=== PATIENT | male | born 1990 | race Two or more races ===

== ENCOUNTER 2017-11-21 05:11 | Emergency (ER) | payer MEDICAID ==
[~2017-11-21] VITALS: Ht 180.3 cm; Wt 99.8 kg
[2017-11-21 05:58] LABS: Urine Bacteria NONE SEEN /hpf (None Seen); Urine Blood Negative /uL (Negative); Urine Specific Gravity 1.006 (1.001-1.035); Urine WBC <1 /hpf (0 - 3)
[2017-11-21 06:03] LABS: Amphetamine Screen, Urine NEGATIVE (NEGATIVE); Barbiturate Scree,Urine NEGATIVE (NEGATIVE); Benzodiazephine Screen, Urine NEGATIVE (NEGATIVE); Cannabinoid Screen, Urine NEGATIVE (NEGATIVE); Cocaine Screen, Urine NEGATIVE (NEGATIVE); Opiate Scree,Urine NEGATIVE (NEGATIVE); Phencyclidine Screen, Urine NEGATIVE (NEGATIVE)
[2017-11-21 08:22] LABS: Basophils # (auto) 0.1 uL; Basophils % (auto) 0.8 % (0.0-2.0); Eosinophils # (auto) 0.1 uL; Eosinophils % (auto) 1.8 % (0.0-7.0); Hematocrit 45.7 % (41.0-53.0); Hemoglobin 15.2 g/dL (13.5-17.5); Lymphocytes % (auto) 29.7 % (10.0-50.0); Mean Corpuscular Hemoglobin 29.6 pg (28.0-32.0); Mean Corpuscular Hgb Conc. 33.2 g/dL (32.0-36.0); Mean Corpuscular Volume 89.3 fL (80.0-100.0); Monocytes # (auto) 0.5 uL; Monocytes % (auto) 7.6 % (0.0-12.0); Neutrophils # (auto) 4.1 uL; Neutrophils % (auto) 60.1 % (37.0-80.0); Nucleated Red Blood Cells % 0.1 %; Platelet Count (auto) 195 10^3/uL (140-450); Red Blood Cells 5.12 10^6/uL (4.5-5.90); Red Cell Distribution Width 13.1 % (11.8-14.3); White Blood Cell 6.8 10^3/uL (4.4-10.8)
[2017-11-21 08:42] LABS: Alanine Aminotransferase 47 U/L (16-61); Albumin 4.2 g/dL (3.4-5.0); Alkaline Phosphatase 81 U/L (45-117); Anion Gap 7 (5-15); Aspartate Aminotransferase 23 U/L (15-37); BUN/Creatinine Ratio 15.6; Bilirubin, Total 0.5 mg/dL (0.2-1.0); Blood Urea Nitrogen 14 mg/dL (7-18); Calcium 8.6 mg/dL (8.5-10.1); Carbon Dioxide 25 mmol/L (21-32); Chloride 109 mmol/L (98-107); GFR African American 131 mL/min; GFR Non-African American 108 mL/min; Glucose 83 mg/dL (74-106); Magnesium 2.6 mg/dL (1.6-2.6); Potassium 3.9 mmol/L (3.5-5.1); Sodium 141 mmol/L (136-145); Total Protein 8.4 g/dL (6.4-8.2)
[2017-11-21 09:34] VITALS: BP 131/70
== END 2017-11-21 09:40 | disposition home or self-care (01) ==
LOC: ER 05:17
DX: R07.89 Other chest pain (principal); F10.10 Alcohol abuse, uncomplicated; F17.210 Nicotine dependence, cigarettes, uncomplicated
CPT/HCPCS: 36415; 71045; 80053; 80307; 81001; 83735; 83880; 84484; 85025; 93005

== ENCOUNTER 2018-06-15 01:45 | Emergency (ER) | payer MEDICAID ==
[~2018-06-15] VITALS: Ht 180.3 cm; Wt 95.3 kg
[2018-06-15 02:30] LABS: Basophils # (auto) 0.1 uL; Eosinophils # (auto) 0.2 uL; Eosinophils % (auto) 2.3 % (0.0-7.0); Hematocrit 43.9 % (41.0-53.0); Hemoglobin 15.2 g/dL (13.5-17.5); Lymphocytes # (auto) 2.8 uL; Lymphocytes % (auto) 36.6 % (10.0-50.0); Mean Corpuscular Hemoglobin 30.8 pg (28.0-32.0); Mean Corpuscular Hgb Conc. 34.6 g/dL (32.0-36.0); Mean Corpuscular Volume 88.8 fL (80.0-100.0); Monocytes # (auto) 0.5 uL; Monocytes % (auto) 7.2 % (0.0-12.0); Neutrophils % (auto) 52.9 % (37.0-80.0); Platelet Count (auto) 190 10^3/uL (140-450); Red Blood Cells 4.95 10^6/uL (4.5-5.90); Red Cell Distribution Width 12.9 % (11.8-14.3); White Blood Cell 7.6 10^3/uL (4.4-10.8)
[2018-06-15 02:45] LABS: INR 0.95 (0.9-1.15); Partial Thromboplastin Time 30.2 sec (23.78-33.04); Prothrombin Time 10.2 sec (9.27-12.13)
[2018-06-15 02:48] LABS: Alanine Aminotransferase 45 U/L (16-61); Albumin 4.2 g/dL (3.4-5.0); Anion Gap 8 (5-15); Blood Urea Nitrogen 19 mg/dL (7-18); Calcium 8.9 mg/dL (8.5-10.1); Carbon Dioxide 27 mmol/L (21-32); Chloride 106 mmol/L (98-107); Glucose 131 mg/dL (74-106); Magnesium 2.5 mg/dL (1.6-2.6); Potassium 3.6 mmol/L (3.5-5.1); Sodium 141 mmol/L (136-145)
[2018-06-15 02:53] LABS: Alkaline Phosphatase 90 U/L (45-117); Aspartate Aminotransferase 17 U/L (15-37); BUN/Creatinine Ratio 20.7; Bilirubin, Total 0.4 mg/dL (0.2-1.0); GFR African American 127 mL/min; GFR Non-African American 105 mL/min; Total Protein 7.9 g/dL (6.4-8.2)
[2018-06-15] MEDS ORDERED: LORazepam 0.5 MG TAB PO ONE (03:00)
[2018-06-15] MEDS ORDERED: SODIUM CHLORIDE 0.9% 1,000 ML IV ONE (07:37)
[2018-06-15 10:50] VITALS: BP 127/55
== END 2018-06-15 10:56 | disposition home or self-care (01) ==
LOC: ER 01:55
DX: F41.1 Generalized anxiety disorder (principal)
CPT/HCPCS: 36415; 71046; 80053; 83036; 83735; 83880; 84443; 84484; 85025; 85379; 85610; 85730; 93005; 94761

== ENCOUNTER 2023-09-23 01:05 | Emergency (ER) | payer MEDICAID ==
[~2023-09-23] VITALS: Ht 180.3 cm; Wt 101.9 kg
[2023-09-23 02:40] LABS: Urine Bacteria None Seen /hpf (None Seen)
[2023-09-23 02:56] LABS: Urine Blood 1+ /uL (Negative); Urine Clarity Clear (Clear); Urine Color Light-Yellow (Yellow); Urine Protein, UAD Negative (Negative); Urine Specific Gravity 1.025 (1.001-1.035); Urine Urobilinogen 2 mg/dL (Negative); Urine WBC 2 /hpf (0 - 3); Urine pH 6.5 (5.0-9.0)
[2023-09-23] MEDS ORDERED: LEVO500T91 PO (04:22)
[2023-09-23 04:45] VITALS: BP 117/65; PULSE 82; RESP 16; TEMP 98.5; O2SAT 98
== END 2023-09-23 05:07 | disposition home or self-care (01) ==
LOC: ER 01:05
DX: N30.90 Cystitis, unspecified without hematuria (principal); R35.0 Frequency of micturition; Z87.891 Personal history of nicotine dependence
CPT/HCPCS: 74176; 81001